=== PATIENT | female | born 1935 | race Caucasian/White ===

== ENCOUNTER 2016-08-06 14:01 | Inpatient (IN) | payer MEDICARE ==
--- NOTE | ~2016-08-06 | HP ---
History And Physical [id number] [facility] [place]. [address] NAME: EDITH LEDBETTER : 37 STATUS : ADM IN [facility]#: [id number] AGE: 81 ADM/REG DATE : 08/06/16 MR#: [id number] REPORT SERV DATE: 08/06/16 DICTATED BY: BURKE ERNST DATE: 08/06/16 REPORT STATUS : Draft TRANSCRIBED BY: MODL DATE: 08/06/16 DATE OF ADMISSION: 08/06/2016 CHIEF COMPLAINT: An 81-year-old female presenting with shortness of breath. HISTORY OF PRESENTING ILLNESS: The patient's history was obtained through careful interview with the patient and her , coupled with review of [facility] and [facility] medical records. For about six days now, the patient has had progressive shortness of breath characterized by dyspnea on exertion. She has also noted exertional hypoxia at home. She usually wears 3 L of nasal cannula oxygen and after exertion, her O2 saturation will drop to about 80%. She went to the [facility] Emergency Department several days ago, was told that she was in stable condition and sent home without any particular interventions. She has had a slight nonproductive cough. Last night, she developed severe nausea, episodes of dry heaves, and two episodes of vomiting. She describes lower midchest discomfort, an aching quality, 8/10 severity to the point where she could not go to sleep last night, but there is no specific orthopnea nor paroxysmal nocturnal dyspnea nor lower extremity edema. She describes "I am just real, real tired." No lightheadedness. No confusion. No fevers or chills. She has rare chronic intermittent diarrhea, but no worsened now. REVIEW OF SYSTEMS: Otherwise, a 14-point review of systems was obtained and was negative. PAST MEDICAL HISTORY: 1. COPD with chronic hypercapnia, on nasal cannula oxygen. Her PaCO2 is chronically about 55. She is seen by Dr. Belcher. 2. Pneumonia most recently in 2011 and 2014. 3. Steroid-induced diabetes. Hemoglobin A1c 6.9, 05/2016. 4. Irritable bowel syndrome and pancreatic insufficiency with chronic diarrhea. 5. Aortic regurgitation and mitral regurgitation. Negative catheterization of the heart in 2001. 6. Thrombocytopenia. 7. Urinary tract infections. 8. 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 9. Pauci-immune nephritis with a positive myeloperoxidase in 2009, on a course of Cytoxan, but has had complete resolution of this condition. 10.Pulmonary fibrosis. 11.Elevated right diaphragm. 12.Postoperative atrial fibrillation, solitary episode. 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 History And Physical [address] [place]. [address] NAME: EDITH LEDBETTER : 37 STATUS : ADM IN [facility]#: [id number] AGE: 81 ADM/REG DATE : 08/06/16 MR#: [id number] REPORT SERV DATE: 08/06/16 DICTATED BY: BURKE ERNST DATE: 08/06/16 REPORT STATUS : Draft TRANSCRIBED BY: MARIA ESTHER DATE: 08/06/16 14.Gastroesophageal reflux disorder. 15.Pericardial effusion. 16.Thyroid nodule, chronic, stable. PAST SURGICAL HISTORY: 1. Hysterectomy. 2. Cholecystectomy. 3. Skin cancers. ALLERGIES: FLUOROQUINOLONES, PENICILLIN, CEPHALOSPORINS, ASPIRIN, BETA-KEYSHA, AMILORIDE. SOCIAL HISTORY: Quit smoking in 2003. No alcohol use. Is . Lives in [place], [place]. 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 Has four children, three of whom actually live on the same property as the patient. She has eight grandchildren, four great-grandchildren. FAMILY HISTORY: Aneurysms. Father with some kind of neurological disease and paralysis. Mother with congestive heart failure. Brother with cancer. CURRENT MEDICATIONS: Include albuterol inhaler, calcium with vitamin D, Breo Ellipta, Lasix 40 mg p.o. daily, hydrocodone, Prilosec 20 mg p.o. daily, Florastor 250 mg p.o. daily, Spiriva inhaled daily, Diovan 160 mg p.o. daily, verapamil extended release 180 mg p.o. b.i.d. PHYSICAL EXAMINATION: VITAL SIGNS: Temperature 97.3, pulse 73, blood pressure 185/74, respiratory rate 24, and O2 saturation 80% on 3 L after exertion. GENERAL: An ill-appearing female, but she does not have any particular distress at this time neither is she lethargic. HEENT: Pupils equal, round, and reactive to light. No conjunctival pallor. No scleral icterus. Nares are patent. Oropharynx is clear of obstruction. Moist mucous membranes. NECK: Trachea midline. No thyromegaly. LYMPH: No cervical lymphadenopathy. No supraclavicular lymphadenopathy. RESPIRATORY: The patient has scattered inspiratory and expiratory wheezes on examination. There is also a dry crackle at the base of lungs that is likely consistent with her chronic pulmonary fibrosis. I also believe by exam that there are diminished breath sounds and focal egophony in the right lower lung out of proportion to the left. The patient does have a labored respiratory effort, but she is not in any means distressed. CARDIOVASCULAR: Regular rate and rhythm. No murmurs, rubs, or gallops. No current extremity edema is appreciated. ABDOMEN: Soft, nontender, nondistended. Normal bowel sounds auscultated throughout. No hepatosplenomegaly. DERMATOLOGICAL: Warm and dry extremities. No pallor, no cyanosis. PSYCHIATRIC: Normal affect. Good mood. Alert and oriented x3. LABORATORY DATA: White blood cell count 16.6, hemoglobin 14, hematocrit 45, platelets 123. Sodium 142, potassium 4.0, chloride 103, bicarb 33, BUN 26, creatinine 1.17, glucose 159. History And Physical [address] [address] NAME: EDITH LEDBETTER : 37 STATUS : ADM IN [facility]#: [id number] AGE: 81 ADM/REG DATE : 08/06/16 MR#: [id number] REPORT SERV DATE: 08/06/16 DICTATED BY: BURKE ERNST DATE: 08/06/16 REPORT STATUS : Draft TRANSCRIBED BY: MODAdryan DATE: 08/06/16 Albumin 2.9. Troponin negative. INR 1.1. Liver enzymes within normal limits. The differential on the white blood cell count shows elevated neutrophils and elevated monocytes. ABG demonstrates pH 7.32, a PaCO2 of 66, a PaO2 of 84, and a bicarb of 33 on 4 L. STUDIES: 1. Chest x-ray by my own evaluation shows increased right middle lung disease compared to 2015 with chronic left pulmonary fibrosis changes, stable. 2. CT scan of the abdomen and pelvis shows no acute intraabdominal process. ASSESSMENT AND PLAN: 1. Pneumonia with presumptive diagnosis by exam and interpretation of chest x-ray. Check blood cultures. Follow chest x-ray. Place on IV antibiotics. Noted the patient has allergies to penicillins, cephalosporin, and fluoroquinolones, therefore, we will start the patient on aztreonam and azithromycin. 2. Systemic inflammatory response syndrome/sepsis with tachypnea and white blood cell count of 16.6. Check blood cultures. Place on IV antibiotics. 3. Hypoxic and hypercapnic respiratory failure, 80% on 3 L after exertion. A PaCO2 of 66 with a baseline in the 50s. The patient is not lethargic, not in distress. We will follow ABG with supportive measures for now. 4. Chronic obstructive pulmonary disease exacerbation. Place on IV Solu-Medrol, Duo nebulizers. 5. Pulmonary fibrosis. KPL/MODL Burke Ernst M.D. / [id number] CC: Teddy Taylor M.D. B. Daniel Harnsberger Jr., M.D.
--- NOTE | ~2016-08-06 | DS ---
Discharge Summary [address] [place]. [address] NAME: EDITH LEDBETTER : 37 STATUS : DIS IN PAT#: [id number] AGE: 81 ADM/REG DATE : 08/06/16 MR#: [id number] REPORT SERV DATE: 08/10/16 DICTATED BY: SARAHY SILVERIO DATE: 08/09/16 REPORT STATUS : Draft TRANSCRIBED BY: MODAdryan DATE: 08/09/16 ADMISSION DATE: 08/06/2016 DISCHARGE DATE: 08/09/2016 PRINCIPAL DIAGNOSES: Acute on chronic hypoxemic and hypercapnic respiratory failure due to acute right lobar atelectasis in the setting of advanced chronic obstructive pulmonary disease, also cor pulmonale with anasarca exacerbated by a verapamil. HISTORY OF PRESENT ILLNESS: Please see Dr. Oliva's dictation 08/06/2016. HOSPITAL COURSE: Admitted with acute on chronic hypoxemic and hypercapnic respiratory failure with a low pH, placed on BiPAP. She was diagnosed with pneumonia, COPD exacerbation but she neither had pneumonia nor COPD exacerbation. She did, however, have a right lobar atelectasis with reduction in lung volume and deviation of her trachea to the right. Chest percussion therapy, incentive spirometry, oxygen, aerosols, mucolytics, she had substantial improvement with no further episodes of hypercapnia/hypoxemia, was stabilized on her home dose of oxygen. She wished to go home on 08/09/2016, it was felt satisfactory do so and following up with Teddy Belcher as previously scheduled, Dr. Rohit Fitch in 1 to 2 weeks. Instructed to continue mucolytic therapy, incentive spirometry for the next week, albuterol around the clock for the next week and then resuming her home meter dose inhalers. She also was given a tapering dose of prednisone over the course of the next nine days. No antibiotics were felt indicated. DICTATED BY: Teddy Taylor/MARIA ESTHER Sarahy Silverio M.D. / [id number] CC: Sarahy Teddy Cordero M.D. B. Daniel Harnsberger Jr., M.D.
[~2016-08-06 14:01] MED LIST: ACCUNE1 INH; ALBUTEROL; ALBUTEROL5 INH; AMARYL2 PO; APRES50 PO; Albuterol INH; BREO ELLIPTA INH; CALTRA600D PO; CARDU2 PO; CATAPRES2 TOP; CENTRUM TAB1 TAB PO; COZAAR100 MG PO; DIOV160 PO; FLEXERIL5 MG PO; FLORASTOR250 MG PO; FOLIC PO; ISOPTINSR PO; KLOR-CON M2020 MEQ PO; KLOR-CON20 MEQ PO; L40 PO; LEVAQUIN750 MG PO; LORTAB 5 PO; MEDROLPAK4 PO; MIRALAXPKT PO; MUCINEX1200 MG PO; NORCO1 TA1 PO; NORV10 PO; P1 PO; P10 PO; P5 PO; PRILO PO; PROAIR HFA INH; PROBIOTIC PO; PROVENTSOL INH; SENTAB PO; SPIRIVA INH; TEARS NATURA OP; TRANXENE 7.5 M7.5 MG OR; TRANXENE 7.5 M7.5 MG PO; TREXALL15 MG PO; V180SR PO; VERELAN180 MG; VERELAN240 MG PO; VITAMIN D1000 UNI1 PO; VITD PO; ZOFRAN8 PO
[2016-08-06 15:35] LABS: INSTRUMENT SERIAL # 8087
[2016-08-06 15:35] LABS: BASOPHILS 0.1 %; BASOPHILS ABSOLUTE 0.01 10/3/uL (0.0-0.16); EOSINOPHILS ABSOLUTE 0.17 10/3/uL (0.0-0.53); HEMATOCRIT 44.7 % (36.0-48.0); HEMOGLOBIN 13.6 g/dL (12.0-16.0); IMMATURE GRANULOCYTES 0.3 %; IMMATURE GRANULOCYTES ABSOLUTE 0.05 10/3/uL (0.0-0.11); LYMPHOCYTES 9.6 %; LYMPHOCYTES ABSOLUTE 1.59 10/3/uL (0.67-4.30); MEAN CORPUS HGB CONC 30.4 g/dL (32.0-36.0); MEAN CORPUSCULAR VOLUME 82.3 fL (80-100); MEAN PLATELET VOLUME 11.1 fL (9.2-13.0); MONOCYTES 28.3 %; MONOCYTES ABSOLUTE 4.71 10/3/uL (0.21-1.20); NEUTROPHILS 60.7 %; PLATELET COUNT 123 10/3/uL (150-400); RBC DISTRIBUTION WIDTH 14.1 % (12.0-16.0); RED CELL COUNT 5.43 10/6/uL (4.0-5.6)
[2016-08-06 15:36] LABS: ALLENS TEST Pos; BE (BASE EXCESS) 5.5 MEQ/L (0 +/- 2.5); CARBOXYHEMOGLOBIN 1.9 % (0-3); HCO3 (ACTUAL BICARBONATE) 33.7 MEQ/L (23-27); HEMOBLOGIN CONTENT 13.9 G/DL (12-16); METHEMOGLOBIN 0.3 % (0-3); O2 CONTENT 18.5 VOL% (18-24); OPERATOR ID 14335; PCO2 (CO2 TENSION) 66 MMHG (35-45); PO2 (O2 TENSION) 84 MMHG (79-93); SAMPLE Arterial; pH 7.33 (7.37-7.43)
[2016-08-06 15:38] LABS: MANUAL DIFF NO %; WHITE BLOOD CELLS 16.6 10/3/uL (4.5-10.5)
[2016-08-06 15:44] LABS: INTERNATIONAL NORMAL RATI 1.1 UNITS (-); PARTIAL THROMBO TIME 26.8 SEC (22.5-37.2)
[2016-08-06 15:54] LABS: ALBUMIN 2.9 G/DL (3.5-5.0); CALCIUM, SERUM 9.1 MG/DL (8.5-10.4); CHEST PAIN PROFILE TAT 0 Hrs 22 Mins; CHLORIDE, SERUM 103 MMOL/L (96-112); CO2 (CARBON DIOXIDE) 33 MMOL/L (24-34); CREATININE 1.17 MG/DL (0.55-1.02); DIRECT BILIRUBIN 0.2 MG/DL (0.0-0.4); GFR AFRICAN AMERICAN 51 ML/MIN (>=60); GFR NON AFRICAN AMERICAN 44 ML/MIN (>=60); GLUCOSE, SERUM 159 MG/DL (60-99); INDIRECT BILIRUBIN(NOT ORDER) 0.3 MG/DL (0.1-0.9); SGOT(AST) 18 U/L (5-40); SGPT(ALT) 18 U/L (5-65); SODIUM, SERUM 142 MMOL/L (135-148); TOTAL BILIRUBIN 0.5 MG/DL (0-1.2); TROPONIN I <0.02 NG/ML (<0.05)
[2016-08-06 15:55] LABS: ALKALINE PHOSPHATASE 119 U/L (45-117); BUN (BLOOD UREA NITROGEN) 26 MG/DL (6-23)
[2016-08-06 15:56] LABS: EOSINOPHILS 1 %; EOSINOPHILS ABSOLUTE (CALC) 0.17 10/3/uL (0.0-0.53); ER DIFF TAT 0 Hrs 24 Mins; LYMPHOCYTES 10 %; LYMPHOCYTES ABSOLUTE (CALC) 1.66 10/3/uL (0.67-4.30); MONOCYTES 24 %; MONOCYTES ABSOLUTE (CALC) 3.98 10/3/uL (0.21-1.20); NEUTROPHILS ABSOLUTE (CALC) 10.79 10/3/uL (2.02-8.40); SEGMENTED NEUTROPHIL (0) 65 %; TOTAL NUCLEATED CELLS 100
[2016-08-06 15:57] LABS: PLATELET ESTIMATE SLT DEC (ADEQUATE); RBC MORPHOLOGY NORM (NORMAL)
[2016-08-06] MEDS ORDERED: DIOV160 PO (18:13)
[2016-08-06] MEDS ORDERED: L40 PO (18:14)
[2016-08-06] MEDS ORDERED: FLORASTOR250 MG PO (18:14)
[2016-08-06] MEDS ORDERED: ISOPTIN SR180 MG PO (18:14)
[2016-08-06] MEDS ORDERED: SPIRIVA INH (18:15)
[2016-08-06] MEDS ORDERED: PRILO PO (18:15)
[2016-08-06] MEDS ORDERED: BREO ELLIPTA INH (18:16)
[2016-08-06] MEDS ORDERED: ALBUTEROL0.083 % INH (18:16)
[2016-08-06] MEDS ORDERED: CALTRA600D PO (18:17)
[2016-08-06] MEDS ORDERED: VITAMIN D1000 UNI1 PO (18:17)
[2016-08-06] MEDS ORDERED: NORCO1 TA1 PO (18:18)
[2016-08-06 18:22] LABS: ASCORBIC ACID (UR NOT ORDER) NEG (NEG); BILIRUBIN, URINE NEGATIVE (NEG); ER URINALYSIS TAT 0 Hrs 00 Mins; KETONE, URINE NEGATIVE (NEG); LEUKOCYTE ESTERASE(NOT OR NEG (NEG); NITRITE (URINE) NEG (NEG); WBC (NOT ORDERED) (RFLEX) 2 (0-5)
[2016-08-06 20:05] LABS: LACTATE 0.8 MMOL/L (0.3-2.4)
[2016-08-07 03:17] LABS: ALLENS TEST Pos; BE (BASE EXCESS) 0.9 MEQ/L (0 +/- 2.5); CARBOXYHEMOGLOBIN 1.9 % (0-3); DEVICE NC; HEMOBLOGIN CONTENT 13.2 G/DL (12-16); INSTRUMENT SERIAL # 8083; METHEMOGLOBIN 0.3 % (0-3); O2 CONTENT 17.1 VOL% (18-24); PCO2 (CO2 TENSION) 63 MMHG (35-45); PO2 (O2 TENSION) 71 MMHG (79-93); SAMPLE Arterial; pH 7.28 (7.37-7.43)
[2016-08-07 06:03] LABS: ALLENS TEST Pos; BE (BASE EXCESS) 3.4 MEQ/L (0 +/- 2.5); BIPAP 16/6 cm.H2O; CARBOXYHEMOGLOBIN 1.6 % (0-3); HEMOBLOGIN CONTENT 13.2 G/DL (12-16); INSTRUMENT SERIAL # 8083; METHEMOGLOBIN 0.3 % (0-3); O2 CONTENT 17.7 VOL% (18-24); OPERATOR ID 35390; PCO2 (CO2 TENSION) 61 MMHG (35-45); PO2 (O2 TENSION) 83 MMHG (79-93); SAMPLE Arterial; pH 7.32 (7.37-7.43)
[2016-08-07 06:52] LABS: BASOPHILS 0 %; EOSINOPHILS 0 %; HEMATOCRIT 42.2 % (36.0-48.0); HEMOGLOBIN 12.6 g/dL (12.0-16.0); IMMATURE GRANULOCYTES 0.9 %; LYMPHOCYTES 6.8 %; LYMPHOCYTES ABSOLUTE 0.79 10/3/uL (0.67-4.30); MEAN CORPUS HGB CONC 29.9 g/dL (32.0-36.0); MEAN CORPUSCULAR HEMOGLOB 24.6 pg (26.0-34.0); MEAN CORPUSCULAR VOLUME 82.3 fL (80-100); MEAN PLATELET VOLUME 11.6 fL (9.2-13.0); MONOCYTES 7.2 %; MONOCYTES ABSOLUTE 0.84 10/3/uL (0.21-1.20); NEUTROPHILS 85.1 %; NEUTROPHILS ABSOLUTE 9.95 10/3/uL (2.02-8.40); PLATELET COUNT 122 10/3/uL (150-400); RBC DISTRIBUTION WIDTH 13.5 % (12.0-16.0); RED CELL COUNT 5.13 10/6/uL (4.0-5.6); WHITE BLOOD CELLS 11.7 10/3/uL (4.5-10.5)
[2016-08-07 06:53] LABS: MANUAL DIFF NO %
[2016-08-07 06:56] LABS: INTERNATIONAL NORMAL RATI 1.1 UNITS (-); PARTIAL THROMBO TIME 29.8 SEC (22.5-37.2); PROTIME (NOT ORD) 14.5 SEC (12.0-14.5)
[2016-08-07 07:22] LABS: A/G RATIO 0.6 (0.7-1.9); ALBUMIN 2.6 G/DL (3.5-5.0); CALCIUM, SERUM 9.6 MG/DL (8.5-10.4); CHLORIDE, SERUM 102 MMOL/L (96-112); CO2 (CARBON DIOXIDE) 34 MMOL/L (24-34); CREATININE 1.27 MG/DL (0.55-1.02); GFR AFRICAN AMERICAN 46 ML/MIN (>=60); GFR NON AFRICAN AMERICAN 40 ML/MIN (>=60); GLOBULIN 4.6 G/DL (2.5-4.1); POTASSIUM, SERUM 4.8 MMOL/L (3.5-5.3); SGOT(AST) 15 U/L (5-40); SGPT(ALT) 16 U/L (5-65); SODIUM, SERUM 137 MMOL/L (135-148); TOTAL BILIRUBIN 0.4 MG/DL (0-1.2); TOTAL PROTEIN 7.2 G/DL (6.0-8.5); TROPONIN I <0.02 NG/ML (<0.05)
[2016-08-07 07:25] LABS: ALKALINE PHOSPHATASE 95 U/L (45-117); BUN (BLOOD UREA NITROGEN) 33 MG/DL (6-23); GLUCOSE, SERUM 192 MG/DL (60-99); ULTRASENSITIVE TSH 0.512 MCIU/ML (0.358-3.740)
[2016-08-07 08:08] LABS: PROCALCITONIN 0.08 ng/mL (<0.5)
[2016-08-07 10:12] LABS: ALLENS TEST Pos; BE (BASE EXCESS) 0.8 MEQ/L (0 +/- 2.5); CARBOXYHEMOGLOBIN 1.7 % (0-3); DEVICE NC; HCO3 (ACTUAL BICARBONATE) 28.9 MEQ/L (23-27); HEMOBLOGIN CONTENT 14.1 G/DL (12-16); INSTRUMENT SERIAL # 8083; METHEMOGLOBIN 0.3 % (0-3); O2 CONTENT 18.2 VOL% (18-24); PCO2 (CO2 TENSION) 62 MMHG (35-45); PO2 (O2 TENSION) 67 MMHG (79-93); SAMPLE Arterial; pH 7.29 (7.37-7.43)
[2016-08-08 07:02] LABS: HEMATOCRIT 42.1 % (36.0-48.0); HEMOGLOBIN 12.6 g/dL (12.0-16.0); MEAN CORPUS HGB CONC 29.9 g/dL (32.0-36.0); MEAN CORPUSCULAR HEMOGLOB 24.5 pg (26.0-34.0); MEAN CORPUSCULAR VOLUME 81.9 fL (80-100); MEAN PLATELET VOLUME 10.7 fL (9.2-13.0); PLATELET COUNT 127 10/3/uL (150-400); RBC DISTRIBUTION WIDTH 13.9 % (12.0-16.0); RED CELL COUNT 5.14 10/6/uL (4.0-5.6)
[2016-08-08 07:03] LABS: MANUAL DIFF YES %; WHITE BLOOD CELLS 17.8 10/3/uL (4.5-10.5)
[2016-08-08 07:31] LABS: LYMPHOCYTES 13 %; LYMPHOCYTES ABSOLUTE (CALC) 2.31 10/3/uL (0.67-4.30); MONOCYTES 18 %; NEUTROPHILS ABSOLUTE (CALC) 12.28 10/3/uL (2.02-8.40); SEGMENTED NEUTROPHIL (0) 69 %; TOTAL NUCLEATED CELLS 100
[2016-08-08 07:32] LABS: PLATELET ESTIMATE SLT DEC (ADEQUATE); RBC MORPHOLOGY NORM (NORMAL)
[2016-08-08 08:06] LABS: A/G RATIO 0.6 (0.7-1.9); ALBUMIN 2.6 G/DL (3.5-5.0); ALKALINE PHOSPHATASE 90 U/L (45-117); CALCIUM, SERUM 9.4 MG/DL (8.5-10.4); CHLORIDE, SERUM 102 MMOL/L (96-112); CHOL/HDL RATIO(NOT ORDER) 3.5 (0-5); CHOLESTEROL 138 MG/DL (< 200); CO2 (CARBON DIOXIDE) 38 MMOL/L (24-34); CREATININE 1.31 MG/DL (0.55-1.02); GFR AFRICAN AMERICAN 44 ML/MIN (>=60); GFR NON AFRICAN AMERICAN 38 ML/MIN (>=60); GLOBULIN 4.2 G/DL (2.5-4.1); HDL CHOLESTEROL 39 MG/DL (> 49); LDL CHOLESTEROL 73 MG/DL (< 130); NON-HDL CHOLESTEROL 99 MG/DL (< 160); POTASSIUM, SERUM 4.3 MMOL/L (3.5-5.3); SGOT(AST) 9 U/L (5-40); SGPT(ALT) 12 U/L (5-65); SODIUM, SERUM 141 MMOL/L (135-148); TOTAL BILIRUBIN 0.5 MG/DL (0-1.2); TOTAL PROTEIN 6.8 G/DL (6.0-8.5); TRIGLYCERIDE 130 MG/DL (< 150)
[2016-08-08 08:07] LABS: BUN (BLOOD UREA NITROGEN) 48 MG/DL (6-23); GLUCOSE, SERUM 115 MG/DL (60-99)
[2016-08-09 04:27] LABS: ALLENS TEST Pos; BE (BASE EXCESS) 5.5 MEQ/L (0 +/- 2.5); CARBOXYHEMOGLOBIN 1.5 % (0-3); DEVICE NC; HCO3 (ACTUAL BICARBONATE) 31.8 MEQ/L (23-27); HEMOBLOGIN CONTENT 13.2 G/DL (12-16); INSTRUMENT SERIAL # 8083; METHEMOGLOBIN 0.4 % (0-3); O2 CONTENT 17.1 VOL% (18-24); OPERATOR ID 31061; PCO2 (CO2 TENSION) 54 MMHG (35-45); PO2 (O2 TENSION) 68 MMHG (79-93); SAMPLE Arterial; pH 7.39 (7.37-7.43)
[2016-08-09 05:49] LABS: T.P. URINE (NOT ORDER RAN 79.2 MG/DL
[2016-08-09 05:50] LABS: CALCIUM, SERUM 10.1 MG/DL (8.5-10.4); CHLORIDE, SERUM 99 MMOL/L (96-112); CO2 (CARBON DIOXIDE) 37 MMOL/L (24-34); CREATININE 1.27 MG/DL (0.55-1.02); GFR AFRICAN AMERICAN 46 ML/MIN (>=60); GFR NON AFRICAN AMERICAN 40 ML/MIN (>=60); GLUCOSE, SERUM 102 MG/DL (60-99); POTASSIUM, SERUM 4.5 MMOL/L (3.5-5.3); SODIUM, SERUM 139 MMOL/L (135-148)
[2016-08-09 05:51] LABS: BUN (BLOOD UREA NITROGEN) 54 MG/DL (6-23)
[2016-08-09] MEDS ORDERED: MAGOX4 PO (09:42)
[2016-08-09] MEDS ORDERED: MELA3 PO (09:43)
[2016-08-09] MEDS ORDERED: P10 PO (09:55)
[2016-08-09] MEDS ORDERED: KLOR-CON 1010 MEQ PO (09:55)
[2016-08-09] MEDS ORDERED: CARDCD240 PO (09:57)
[2016-08-09] MEDS ORDERED: MUCINEX600 MG PO (09:59)
[2016-09-23] MEDS ORDERED: DIOV160 PO (16:08)
[2016-09-23] MEDS ORDERED: FLORASTOR250 MG PO (16:09)
[2016-09-23] MEDS ORDERED: L40 PO (16:09)
[2016-09-23] MEDS ORDERED: ISOPTIN SR180 MG PO (16:10)
[2016-09-23] MEDS ORDERED: CALTRA600D PO (16:10)
[2016-09-23] MEDS ORDERED: PRILO PO (16:11)
[2016-09-23] MEDS ORDERED: VITAMIN D1000 UNI1 PO (16:12)
[2016-09-23] MEDS ORDERED: SPIRIVA INH (16:13)
[2016-09-23] MEDS ORDERED: NORCO1 TA1 PO (16:13)
[2016-09-23] MEDS ORDERED: ALBUTEROL0.083 % INH (16:14)
[2016-09-23] MEDS ORDERED: REFRESH OPH SO0.3 ML OPH (16:16)
[2016-09-23] MEDS ORDERED: BREO ELLIPTA 21 EACH INH (16:23)
[2016-09-23] MEDS ORDERED: TRANXENE 7.5 M7.5 MG PO (16:32)
[2016-09-23] MEDS ORDERED: K-TABS10 MEQ PO (16:34)
[2016-09-23] MEDS ORDERED: PROAIR HFA INH (16:36)
[2016-09-25] MEDS ORDERED: MUCINEX1200 MG PO (11:41)
[2016-09-25] MEDS ORDERED: P10 PO (11:42)
[2016-09-25] MEDS ORDERED: MONODOX100 MG PO (11:42)
== END 2016-08-09 12:10 | disposition home or self-care (01) | DRG 189 ==
LOC: ER 14:01 → CDU1 17:56 → 1SO 18:42
PROVIDERS: Emergency Medicine; Hospitalist; Internal Medicine
PROC: 5A09357 Assistance with Respiratory Ventilation, Less than 24 Consecutive Hours, Continuous Positive Airway Pressure (ICD-10-PCS; principal; 2016-08-06)
DX: J96.21 Acute and chronic respiratory failure with hypoxia (principal); J98.11 Atelectasis; E09.22 Drug or chemical induced diabetes mellitus with diabetic chronic kidney disease; I27.81 Cor pulmonale (chronic); J44.9 Chronic obstructive pulmonary disease, unspecified; J84.10 Pulmonary fibrosis, unspecified; J96.22 Acute and chronic respiratory failure with hypercapnia; Z99.81 Dependence on supplemental oxygen; I12.9 Hypertensive chronic kidney disease with stage 1 through stage 4 chronic kidney disease, or unspecified chronic kidney disease; N18.9 Chronic kidney disease, unspecified; K75.81 Nonalcoholic steatohepatitis (NASH); T38.0X5A Adverse effect of glucocorticoids and synthetic analogues, initial encounter; J39.8 Other specified diseases of upper respiratory tract; K21.9 Gastro-esophageal reflux disease without esophagitis; I08.0 Rheumatic disorders of both mitral and aortic valves; K58.0 Irritable bowel syndrome with diarrhea; Z79.891 Long term (current) use of opiate analgesic; Z79.899 Other long term (current) drug therapy; Z87.891 Personal history of nicotine dependence; Z87.440 Personal history of urinary (tract) infections; Z85.828 Personal history of other malignant neoplasm of skin; Z87.01 Personal history of pneumonia (recurrent); Z88.0 Allergy status to penicillin; Z88.1 Allergy status to other antibiotic agents; Z88.6 Allergy status to analgesic agent; Z88.8 Allergy status to other drugs, medicaments and biological substances; Z85.6 Personal history of leukemia
CPT/HCPCS: 36600; 71010; 74176; 80048; 80053; 80061; 80076; 81001; 82805; 82962; 83036; 83605; 83735; 83880; 84145; 84156; 84443; 84484; 85025; 85610; 85730; 87040; 93005; 94640; 94660; 94667; 94668; 96374; 96375; 99285; A9270-GY; J0456; J1170; J1940; J2405; J2920; J2930